=== PATIENT | male | born 1990 | race Caucasian/White ===

== ENCOUNTER 2019-04-26 00:14 | Emergency (ER) | payer SELFPAY ==
[~2019-04-26] VITALS: Ht 177.8 cm; Wt 74.8 kg
[2019-04-26] MEDS ORDERED: IV NORMAL SALINE 1,000ML 1,000 ML IV ONE (00:30)
--- NOTE | 2019-04-26 00:38 | PHYS DOC ---
Adult General Chief Complaint Chief Complaint: HALLUCINATIONS AUDIBLE/VISUAL HPI HPI 28-year-old male presents with auditory hallucinations. He tells me he has been hearing a clicking/station intermittently for the last 2 days. He is to here sounds like this more frequently prior to being put on psych medication. He presents tonight because he feels like it's becoming more frequent and is concerning. He denies visual hallucinations. He denies voices. He denies suicidal or homicidal ideation. He does not think his psych meds are working quite as well as they need to. Patient does admit to drinking some alcohol today. He also admits to nonspecific drug use a few days ago. He denies fever or chills. He tells me that this sound is present when he has done drugs and is present when he has not done drugs. He has not been feeling ill. He follows with the [facility] for his psychiatric medication. Review of Systems Review of Systems Constitutional: Denies fever or chills [] Eyes: Denies change in visual acuity, redness, or eye pain [] HENT: Denies nasal congestion or sore throat [] Respiratory: Denies cough or shortness of breath [] Cardiovascular: No additional information not addressed in HPI [] GI: Denies abdominal pain, nausea, vomiting, bloody stools or diarrhea [] : Denies dysuria or hematuria [] Musculoskeletal: Denies back pain or joint pain [] Integument: Denies rash or skin lesions [] Neurologic: Denies headache, focal weakness or sensory changes [] Endocrine: Denies polyuria or polydipsia Psych: Auditory hallucinations [] All other systems were reviewed and found to be within normal limits, except as documented in this note. Current Medications Current Medications Current Medications Medications (Trade) Dose Ordered Sig/Laura Start Time Stop Time Status Last Admin Dose Admin Sodium Chloride 1,000 ml @ 1,000 mls/hr 1X ONCE 04/26/19 00:30 04/26/19 01:29 UNV Allergies Allergies Allergies Coded Allergies Type Severity Reaction Last Updated Verified Penicillins Allergy Unknown 04/26/19 Yes Physical Exam Physical Exam Constitutional: Well developed, well nourished, no acute distress, non-toxic appearance. [] HENT: Normocephalic, atraumatic, bilateral external ears normal, oropharynx moist, no oral exudates, nose normal. [] Eyes: PERRLA, EOMI, conjunctiva normal, no discharge. [] Neck: Normal range of motion, no tenderness, supple, no stridor. [] Cardiovascular:Heart rate regular rhythm, no murmur [] Lungs & Thorax: Bilateral breath sounds clear to auscultation [] Abdomen: Bowel sounds normal, soft, no tenderness, no masses, no pulsatile masses. [] Skin: Warm, dry, no erythema, no rash. [] Back: No tenderness, no CVA tenderness. [] Extremities: No tenderness, no cyanosis, no clubbing, ROM intact, no edema. [] Neurologic: Alert and oriented X 3, normal motor function, normal sensory function, no focal deficits noted. [] Psychologic: Affect normal, judgement normal, mood normal. [] EKG EKG [] Radiology/Procedures Radiology/Procedures [] Course & Med Decision Making Course & Med Decision Making Pertinent Labs and Imaging studies reviewed. (See chart for details) The patient's labs are unremarkable except for slightly elevated white count. His urinalysis is negative for infection. His urine drug screen is positive for methamphetamine. This would explain his tachycardia on arrival. It is likely complicating his psychiatric medications. The patient does not appear to be a danger to himself or others. I have advised that he follow-up with the [facility] tomorrow to discuss his symptoms and possible medication changes. He is stable for discharge at this time. [] Dragon Disclaimer Dragon Disclaimer This electronic medical record was generated, in whole or in part, using a voice recognition dictation system. Departure Departure: Impression: Primary Impression: Hallucinations Disposition: 01 HOME, SELF-CARE Condition: STABLE Referrals: MIKI CORONA (PCP) Patient Instructions: Hallucinations and Delusions TOMEKA WHEAT DO Apr 26, 2019 00:37
[2019-04-26 01:01] LABS: BASO # 0.1 x10^3/uL (0.0-0.2); BASO % 0 % (0-3); EOS % 0 % (0-3); HEMATOCRIT 50.9 % (39.0-53.0); HEMOGLOBIN 17.2 g/dL (13.0-17.5); LYMPH # 2.5 x10^3/uL (1.0-4.8); LYMPH % 19 % (24-48); MEAN CORPUSCULAR HEMOGLOBIN 32 pg (25-35); MEAN CORPUSCULAR HGB CONC 34 g/dL (31-37); MEAN CORPUSCULAR VOLUME 95 fL (79-100); MONO # 1.2 x10^3/uL (0.0-1.1); MONO % 9 % (0-9); NEUT # 9.7 x10^3uL (1.8-7.7); NEUT % 72 % (31-73); PLATELET COUNT 377 x10^3/uL (140-400); RED BLOOD COUNT 5.37 x10^6/uL (4.30-5.70); RED CELL DISTRIBUTION WIDTH 12.5 % (11.5-14.5); WHITE BLOOD COUNT 13.6 x10^3/uL (4.0-11.0)
[2019-04-26 01:13] LABS: ALBUMIN 4.5 g/dL (3.4-5.0); CALCIUM 9.8 mg/dL (8.5-10.1); CREATININE 1.3 mg/dL (0.7-1.3); GFR 65.7; POTASSIUM 3.7 mmol/L (3.5-5.1); TOTAL BILIRUBIN 0.7 mg/dL (0.2-1.0); TOTAL PROTEIN 8.8 g/dL (6.4-8.2)
[2019-04-26 01:40] LABS: BARBITURATES NEG (NEG); BENZODIAZEPINES NEG (NEG); BILIRUBIN,URINE NEG (NEG); CANNABINOIDS NEG (NEG); CLARITY,URINE CLEAR; COCAINE NEG (NEG); COLOR,URINE YELLOW; GLUCOSE,URINE NEG (NEG); METHADONE NEG (NEG); OPIATES NEG (NEG); PHENCYCLIDINE NEG (NEG)
[2019-04-26 01:41] LABS: AMPHETAMINE/METHAMPHETAMINE POS (NEG); BACTERIA,URINE 0 /HPF (0-FEW); NITRITE,URINE NEG (NEG); RBC,URINE 0 /HPF (0-2); SQUAMOUS EPITHELIAL CELL,UR OCC /LPF; UROBILINOGEN,URINE 1 mg/dL (0.2 mg/dL); WBC,URINE OCC /HPF (0-4)
[2019-04-26 01:45] VITALS: BP 139/87
== END 2019-04-26 01:50 | disposition home or self-care (01) ==
LOC: ER 00:14
DX: R44.0 Auditory hallucinations (principal); Z88.0 Allergy status to penicillin
CPT/HCPCS: 36415; 80053; 80307; 81001; 85025; 99284-25; J7030

== ENCOUNTER 2020-05-26 16:43 | Emergency (ER) | payer OTHER ==
[~2020-05-26] VITALS: Ht 177.8 cm; Wt 80.3 kg
[2020-05-26 17:00] VITALS: BP 168/102
--- NOTE | 2020-05-26 17:15 | PHYS DOC ---
Past History Past Medical History: Schizophrenia (TOMEKA WHEAT DO) Past Surgical History: Other Additional Past Surgical Histo: "EARS" (TOMEKA WHEAT DO) Alcohol Use: Occasionally Drug Use: None (TOMEKA WHEAT DO) General Adult EDM: Chief Complaint: PSYCH EVALUATION HPI: HPI: 29-year-old male presents to the emergency department with suicidal thoughts and homicidal thoughts. He tells me that they are nonspecific. He has no specific plan. He just has been bothered by these thoughts more more lately and he is tired of it. Patient used to be on psychiatric medications but has not been on them for "some time".. He has states a history of schizophrenia. He feels like he is having a psychotic episode at this time. He does not mention any specific hallucinations or delusions. He wanted to get into the [facility] but was unable to do that today so he came here. (TOMEKA WHEAT DO) Review of Systems: Review of Systems: Constitutional: Denies fever or chills Eyes: Denies change in visual acuity HENT: Denies nasal congestion or sore throat Respiratory: Denies cough or shortness of breath Cardiovascular: Denies chest pain or edema GI: Denies abdominal pain, nausea, vomiting, bloody stools or diarrhea : Denies dysuria Musculoskeletal: Denies back pain or joint pain Integument: Denies rash Neurologic: Denies headache, focal weakness or sensory changes Endocrine: Denies polyuria or polydipsia Lymphatic: Denies swollen glands Psychiatric: Suicidal and homicidal thoughts. (TOMEKA WHEAT DO) Allergies: Allergies: Allergies Coded Allergies Type Severity Reaction Last Updated Verified Penicillins Allergy Unknown 04/26/19 Yes (TOMEKA WHEAT DO) Physical Exam: PE: Constitutional: Well developed, well nourished, no acute distress, non-toxic appearance. [] HENT: Normocephalic, atraumatic, bilateral external ears normal, oropharynx moist, no oral exudates, nose normal. [] Eyes: PERRLA, EOMI, conjunctiva normal, no discharge. [] Neck: Normal range of motion, no tenderness, supple, no stridor. [] Cardiovascular: Heart rate regular rhythm, no murmur [] Lungs & Thorax: Bilateral breath sounds clear to auscultation [] Abdomen: Bowel sounds normal, soft, no tenderness, no masses, no pulsatile mas ses. [] Skin: Warm, dry, no erythema, no rash. [] Back: No tenderness, no CVA tenderness. [] Extremities: No tenderness, no cyanosis, no clubbing, ROM intact, no edema. [] Neurologic: Alert and oriented X 3, normal motor function, normal sensory function, no focal deficits noted. [] Psychologic: Affect normal, judgement normal, mood anxious. [] (TOMEKA WHEAT DO) EKG: EKG: [] (TOMEKA WHEAT DO) Radiology/Procedures: Radiology/Procedures: [] (TOMEKA WHEAT DO) Heart Score: Risk Factors: Risk Factors: DM, Current or recent (<one month) smoker, HTN, HLP, family history of CAD, obesity. Risk Scores: Score 0 - 3: 2.5% MACE over next 6 weeks - Discharge Home Score 4 - 6: 20.3% MACE over next 6 weeks - Admit for Clinical Observation Score 7 - 10: 72.7% MACE over next 6 weeks - Early Invasive Strategies (TOMEKA WHEAT DO) Course & Med Decision Making: Course & Med Decision Making Pertinent Labs and Imaging studies reviewed. (See chart for details) The patient's work-up and psychiatric evaluation are both pending at this time. I am signing the patient out to Dr. Spivey at 1800. [] (TOMEKA WHEAT DO) Course & Med Decision Making See Dr. Wheat notes for details. Still awaiting Tele Psych at 2000 hrs. See Tele. Psych report. 2030 hrs. Impression: 1. Depression 2. Suicidal Ideation 3. Schizophrenia (LYNNE SPIVEY MD) Dragon Disclaimer: Dragon Disclaimer: This electronic medical record was generated, in whole or in part, using a voice recognition dictation system. (TOMEKA WHEAT DO) Departure Departure: Impression: Primary Impression: Suicidal thoughts Additional Impression: Schizophrenia Referrals: PCP,NO (PCP) Jcon Disclaimer This chart was dictated in whole or in part using Voice Recognition software in a busy, high-work load, and often noisy Emergency Department environment. It may contain unintended and wholly unrecognized errors or omissions. (LYNNE SPIVEY MD) TOMEKA WHEAT DO May 26, 2020 17:15 LYNNE SPIVEY MD May 26, 2020 17:55
[2020-05-26 17:27] LABS: BARBITURATES NEG (NEG); BENZODIAZEPINES NEG (NEG); CANNABINOIDS NEG (NEG); COCAINE NEG (NEG); METHADONE NEG (NEG); OPIATES NEG (NEG); PHENCYCLIDINE NEG (NEG)
[2020-05-26 17:29] LABS: AMPHETAMINE/METHAMPHETAMINE NEG (NEG)
[2020-05-26 17:35] LABS: BILIRUBIN,URINE NEG (NEG); CLARITY,URINE CLEAR; COLOR,URINE STRAW; GLUCOSE,URINE NEG (NEG); NITRITE,URINE NEG (NEG); UROBILINOGEN,URINE 0.2 mg/dL (0.2 mg/dL)
[2020-05-26 17:36] LABS: BACTERIA,URINE 0 /HPF (0-FEW); RBC,URINE 0 /HPF (0-2); WBC,URINE 0 /HPF (0-4)
[2020-05-26 18:22] LABS: BASO % 0 % (0-3); EOS % 1 % (0-3); HEMATOCRIT 46.5 % (39.0-53.0); HEMOGLOBIN 15.8 g/dL (13.0-17.5); LYMPH # 1.1 x10^3/uL (1.0-4.8); LYMPH % 14 % (24-48); MEAN CORPUSCULAR HEMOGLOBIN 32 pg (25-35); MEAN CORPUSCULAR HGB CONC 34 g/dL (31-37); MEAN CORPUSCULAR VOLUME 94 fL (79-100); MONO # 0.7 x10^3/uL (0.0-1.1); MONO % 9 % (0-9); NEUT # 5.9 x10^3uL (1.8-7.7); NEUT % 76 % (31-73); PLATELET COUNT 239 x10^3/uL (140-400); RED BLOOD COUNT 4.94 x10^6/uL (4.30-5.70); RED CELL DISTRIBUTION WIDTH 13.4 % (11.5-14.5); WHITE BLOOD COUNT 7.7 x10^3/uL (4.0-11.0)
[2020-05-26 18:38] LABS: CALCIUM 9.9 mg/dL (8.5-10.1); CREATININE 0.9 mg/dL (0.7-1.3); GFR 99.8
[2020-05-26 18:44] LABS: ALBUMIN 4.3 g/dL (3.4-5.0); TOTAL BILIRUBIN 0.4 mg/dL (0.2-1.0); TOTAL PROTEIN 8.5 g/dL (6.4-8.2)
== END 2020-05-26 20:40 | disposition home or self-care (01) ==
LOC: ER 16:43 → EEVIPCON 16:43 → ER 20:40
DX: R45.851 Suicidal ideations (principal); F20.9 Schizophrenia, unspecified; F32.9 Major depressive disorder, single episode, unspecified; Z88.0 Allergy status to penicillin; Z98.890 Other specified postprocedural states
CPT/HCPCS: 36415; 80053; 80307; 81001; 85025; 99285; G0480

== ENCOUNTER 2021-08-31 11:03 | Emergency (ER) | payer OTHER ==
[~2021-08-31] VITALS: Ht 152.4 cm; Wt 89.7 kg
[2021-08-31 11:24] VITALS: BP 157/100
[2021-08-31] MEDS ORDERED: IV NORMAL SALINE 1,000ML 1,000 ML IV ONE (11:30)
[2021-08-31 11:54] LABS: BASO % 1 % (0-3); EOS # 0.1 x10^3/uL (0.0-0.7); EOS % 1 % (0-3); HEMATOCRIT 46.1 % (39.0-53.0); LYMPH # 2.4 x10^3/uL (1.0-4.8); LYMPH % 33 % (24-48); MEAN CORPUSCULAR HEMOGLOBIN 35 pg (25-35); MEAN CORPUSCULAR HGB CONC 35 g/dL (31-37); MEAN CORPUSCULAR VOLUME 99 fL (79-100); MONO # 0.8 x10^3/uL (0.0-1.1); MONO % 12 % (0-9); NEUT # 3.8 x10^3uL (1.8-7.7); NEUT % 53 % (31-73); PLATELET COUNT 286 x10^3/uL (140-400); RED BLOOD COUNT 4.63 x10^6/uL (4.30-5.70); RED CELL DISTRIBUTION WIDTH 12.6 % (11.5-14.5); WHITE BLOOD COUNT 7.2 x10^3/uL (4.0-11.0)
[2021-08-31 12:02] LABS: CALCIUM 8.7 mg/dL (8.5-10.1); CREATININE 0.9 mg/dL (0.7-1.3); GFR 98.4; POTASSIUM 3.7 mmol/L (3.5-5.1)
[2021-08-31] MEDS: LIDOCAINE 2%/EPI 1:100,000 20 ML VIAL. IJ PRN ×2 (12:02→13:18)
[2021-08-31] MEDS ORDERED: CEPH500T PO (12:34)
--- NOTE | 2021-08-31 12:37 | PHYS DOC ---
Past History Past Medical History: Schizophrenia (AUTUMN FRASER APRN) Past Surgical History: No Surgical History Additional Past Surgical Histo: "EARS" (AUTUMN FRASER APRN) Alcohol Use: Occasionally Drug Use: None (AUTUMN FRASER APRN) General Adult EDM: Chief Complaint: ABSCESS HPI: HPI: Patient is a 31-year-old male presents with abscess to right AC. Patient is a methamphetamine IV, drug user. Patient states he noticed the abscess a few days ago. Patient states last time he used methamphetamines was 5 days ago. Patient has sinus tachycardia, heart rate 137 on arrival. Denies chest pain, shortness of breath, pain to area. Denies fevers. Denies all medical history. (AUTUMN FRASER APRN) Review of Systems: Review of Systems: ROS At least 10 ROS systems have been reviewed and are negative except as documented in the HPI. General: Negative except as outlined in HPI above. Skin: Negative except as outlined in HPI above. HEENT: Negative except as outlined in HPI above. Neck: Negative except as outlined in HPI above. Respiratory: Negative except as outlined in HPI above.. Cardiovascular: Negative except as outlined in HPI above. Abdomen: Negative except as outlined in HPI above. : Negative except as outlined in HPI above. Back/MSK: Negative except as outlined in HPI above. Neuro: Negative except as outlined in HPI above. Psych: Negative except as outlined in HPI above. (AUTUMN FRASER APRN) Current Medications: Current Meds: Current Medications Medications (Trade) Dose Ordered Sig/Laura Start Time Stop Time Status Last Admin Dose Admin Lidocaine/ Epinephrine (Xylocaine 2%-Epi 1:100,000) 20 ml 1X PRN 08/31/21 11:30 08/31/21 12:02 20 ML Sodium Chloride 1,000 ml @ 1,000 mls/hr 1X ONCE 08/31/21 11:30 08/31/21 12:29 08/31/21 11:30 1,000 MLS/HR (AUTUMN FRASER APRN) Allergies: Allergies: Allergies Coded Allergies Type Severity Reaction Last Updated Verified Penicillins Allergy Unknown 04/26/19 Yes (AUTUMN FRASER APRN) Physical Exam: PE: Constitutional: Well developed, well nourished, no acute distress, non-toxic appearance. [] HENT: Normocephalic, atraumatic, bilateral external ears normal, oropharynx moist, no oral exudates, nose normal. [] Eyes: PERRLA, EOMI, conjunctiva normal, no discharge. [] Neck: Normal range of motion, no tenderness, supple, no stridor. [] Cardiovascular:Heart rate regular rhythm, no murmur [] Lungs & Thorax: Bilateral breath sounds clear to auscultation [] Abdomen: Bowel sounds normal, soft, no tenderness, no masses, no pulsatile masses. [] Skin: Fluctuant, abscess, right AC, no tenderness Back: No tenderness, no CVA tenderness. [] Extremities: No tenderness, no cyanosis, no clubbing, ROM intact, no edema. [] Neurologic: Alert and oriented X 3, normal motor function, normal sensory function, no focal deficits noted. [] Psychologic: Affect normal, judgement normal, mood normal. [] (AUTUMN FRASER APRN) Current Patient Data: Labs: Laboratory Tests Test 08/31/21 11:35 White Blood Count 7.2 x10^3/uL (4.0-11.0) Red Blood Count 4.63 x10^6/uL (4.30-5.70) Hemoglobin 16.0 g/dL (13.0-17.5) Hematocrit 46.1 % (39.0-53.0) Mean Corpuscular Volume 99 fL (79-100) Mean Corpuscular Hemoglobin 35 pg (25-35) Mean Corpuscular Hemoglobin Concent 35 g/dL (31-37) Red Cell Distribution Width 12.6 % (11.5-14.5) Platelet Count 286 x10^3/uL (140-400) Neutrophils (%) (Auto) 53 % (31-73) Lymphocytes (%) (Auto) 33 % (24-48) Monocytes (%) (Auto) 12 % (0-9) H Eosinophils (%) (Auto) 1 % (0-3) Basophils (%) (Auto) 1 % (0-3) Neutrophils # (Auto) 3.8 x10^3uL (1.8-7.7) Lymphocytes # (Auto) 2.4 x10^3/uL (1.0-4.8) Monocytes # (Auto) 0.8 x10^3/uL (0.0-1.1) Eosinophils # (Auto) 0.1 x10^3/uL (0.0-0.7) Basophils # (Auto) 0.0 x10^3/uL (0.0-0.2) Sodium Level 133 mmol/L (136-145) L Potassium Level 3.7 mmol/L (3.5-5.1) Chloride Level 103 mmol/L (98-107) Carbon Dioxide Level 23 mmol/L (21-32) Anion Gap 7 (6-14) Blood Urea Nitrogen 6 mg/dL (8-26) L Creatinine 0.9 mg/dL (0.7-1.3) Estimated GFR (Cockcroft-Gault) 98.4 Glucose Level 118 mg/dL (70-99) H Calcium Level 8.7 mg/dL (8.5-10.1) Vital Signs: Vital Signs Date Time Temp Pulse Resp B/P (MAP) Pulse Ox O2 Delivery O2 Flow Rate FiO2 08/31/21 11:24 97.6 140 16 157/100 (119) 97 (AUTUMN FRASER APRN) EKG: EKG: [] (AUTUMN FRASER APRN) Radiology/Procedures: Radiology/Procedures: [] (AUTUMN FRASER APRN) Heart Score: C/O Chest Pain: No Risk Factors: Risk Factors: DM, Current or recent (<one month) smoker, HTN, HLP, family history of CAD, obesity. Risk Scores: Score 0 - 3: 2.5% MACE over next 6 weeks - Discharge Home Score 4 - 6: 20.3% MACE over next 6 weeks - Admit for Clinical Observation Score 7 - 10: 72.7% MACE over next 6 weeks - Early Invasive Strategies (AUTUMN FRASER APRN) Course & Med Decision Making: Course & Med Decision Making Pertinent Labs and Imaging studies reviewed. (See chart for details) [] Nontoxic appearing, 31-year-old male presents with abscess to his right AC. Patient admits to using methamphetamine by needle 5 days ago. Patient's heart rate was elevated on arrival, 137 sinus rhythm. Patient given NS bolus. Afebrile. I&D completed. Refused lidocaine to numb the area prior to incision. Moderate amount of drainage was expressed from area. Patient handle procedure well. Incision was packed. Gauze was placed over incision area along with Coban. Bleeding was controlled. Discussed return instructions. Patient is going to follow-up with his PCP on Friday for a wound check. Patient is at home with antibiotic. Patient verbalizes understanding of discharge instructions. (AUTUMN FRASER APRN) Carrol Disclaimer: Carrol Disclaimer: This electronic medical record was generated, in whole or in part, using a voice recognition dictation system. 31-year-old male presents with abscess to right AC. Patient is a current IV drug user. Patient states he used methamphetamine 5 days ago. Patient is denying pain. Incision placed an abscess and drained. Moderate amount of drainage came from abscess. Abscess was then packed and covered with gauze. Patient is afebrile. Heart rate was elevated at 137. Patient given NS bolus. Patient's heart rate decreased after normal saline bolus administered. Heart rate 110. Discussed pain control at home with ibuprofen and Tylenol. Patient is going to follow-up with his PCP on Friday for a wound check. Discussed return precautions in length. Patient states he understands discharge instructions. (AUTUMN FRASER APRN) Incision and Drainage Indication: Abscess to right AC Procedure: The patient was positioned appropriately and the skin over the incisi on site was cleaned with iodine. Patient refused local anesthesia. An incision was then made over the right AC and amount of drainage material was expressed. Loculations were broken up.. The drainage cavity was then packed with hemostats. The patients tetanus status updated. The patient tolerated the procedure well Complications: N/A (AUTUMN FRASER APRN) Attending Co-Sign The patient was seen and interviewed as well as examined at the bedside. The chart was reviewed. The case was discussed. Agree with the plan of care. (TOMEKA WHEAT DO) Departure Departure: Impression: Primary Impression: Abscess Disposition: HOME / SELF CARE / HOMELESS Condition: STABLE Referrals: PCP,NO (PCP) Patient Instructions: Abscess, Care After, Abscess, [id number] Additional Instructions: You were seen in the emergency room for an abscess. We drained the abscess. If you have discomfort you can use ibuprofen or Tylenol at home. I am sending you home with a prescription for an antibiotic. Please make sure you take it in full and as directed. Please follow-up with your PCP on Friday for a wound check. Please return to emergency with worsening symptoms or concerns. EMERGENCY DEPARTMENT GENERAL DISCHARGE INSTRUCTIONS Thank you for coming to [facility] (ED) today and trusting us with you care. We trust that you had a positivie experience in our Emergency Department. If you wish to speak to the department management, you may call the director at [phone]. YOUR FOLLOW UP INSTRUCTIONS ARE FOLLOWS: 1. Do you have a private Doctor? If you do not have a private doctor, please ask for a resource list of physicians or clinics that may be able to assist you with follow up care. 2. The Emergency Physician has interpreted your x-rays. The X-Ray specialist will also review them. If there is a change in the findings, you will be notified in 48 hours when at all possible. 3. A lab test or culture has been done, your results will be reviewed and you will be notified if you need a change in treatment. ADDITIONAL INSTRUCTIONS AND INFORMATION: 1. Your care today has been supervised by a physician who is specially trained in emergency care. Many problems require more than one evaluation for a complete diagnosis and treatment. We recommend that you schedule your follow up appointment as recommended to ensure complete treatment of you illness or injury. If you are unable to obtain follow up care and continue to have a problem, or if your condition worsens, we recommend that you return to the ED. 2. We are not able to safely determine your condition over the phone nor are we able to give sound medical advice over the phone. For these safety reasons, if you call for medical advice we will ask you to come to the ED for further evaluation. 3. If you have any questions regarding these discharge instructions please call the ED at [phone]. SAFETY INFORMATION: In the interest of safety, wellness, and injury prevention; we encourage you to wear your sealbelt, if you smoke; quite smoking, and we encourage family to use a protective helmet for bicycling and other sporting events that present an increased risk for head injury. IF YOUR SYMPTOMS WORSEN OR NEW SYMPTOMS DEVELOP, OR YOU HAVE CONCERNS ABOUT YOUR CONDITION; OR IF YOUR CONDITION WORSENS WHILE YOU ARE WAITING FOR YOUR FOLLOW UP APPOINTMENT; EITHER CONTACT YOUR PRIMARY CARE DOCTOR, THE PHYSICIAN WHOSE NAME AND NUMBER YOU WERE GIVEN, OR RETURN TO THE ED IMMEDIATELY. Scripts Cephalexin (CEPHALEXIN) 500 Mg Tablet 1 TAB PO BID for infection for 7 Days, #14 TAB Prov: AUTUMN FRASER APRN 08/31/21 AUTUMN FRASER APRN Aug 31, 2021 12:37 TOMEKA WHEAT DO Sep 03, 2021 06:17
[2021-08-31] MEDS ORDERED: DIPHTH,PERTUSS(ACELL),TET TOX 0.5 ML DISP.SYRIN. VAX IM ONE (12:45)
== END 2021-08-31 13:21 | disposition home or self-care (01) ==
LOC: ER 11:03
DX: L02.413 Cutaneous abscess of right upper limb (principal); F20.9 Schizophrenia, unspecified; F15.90 Other stimulant use, unspecified, uncomplicated; Z88.0 Allergy status to penicillin
CPT/HCPCS: 10060; 36415; 80048; 85025; 90471; 90715; 96360; 99283; J7030

== ENCOUNTER 2021-09-03 12:28 | Emergency (ER) | payer OTHER ==
[~2021-09-03] VITALS: Ht 152.4 cm; Wt 89.7 kg
[~2021-09-03 12:28] MED LIST: CEPH500T PO
--- NOTE | 2021-09-03 12:54 | PHYS DOC ---
Past History Past Medical History: Schizophrenia Past Surgical History: No Surgical History Additional Past Surgical Histo: "EARS" Alcohol Use: Occasionally Drug Use: None General Adult EDM: Chief Complaint: ABSCESS HPI: HPI: 31-year-old male returns the emergency room for wound check. Patient had an abscess in his right AC drained by my colleague few days ago. He presents today for packing removal and to check on it. The swelling is significantly decreased. He denies any fever or chills. He tells me that it looks much better to him. Review of Systems: Review of Systems: Constitutional: Denies fever or chills Eyes: Denies change in visual acuity HENT: Denies nasal congestion or sore throat Respiratory: Denies cough or shortness of breath Cardiovascular: Denies chest pain or edema GI: Denies abdominal pain, nausea, vomiting, bloody stools or diarrhea : Denies dysuria Musculoskeletal: Denies back pain or joint pain Integument: Wound from abscess Neurologic: Denies headache, focal weakness or sensory changes Endocrine: Denies polyuria or polydipsia Lymphatic: Denies swollen glands Psychiatric: Denies depression or anxiety Allergies: Allergies: Allergies Coded Allergies Type Severity Reaction Last Updated Verified Penicillins Allergy Unknown 04/26/19 Yes Physical Exam: PE: Constitutional: Well developed, well nourished, no acute distress, non-toxic appearance. [] HENT: Normocephalic, atraumatic, bilateral external ears normal, oropharynx moist, no oral exudates, nose normal. [] Eyes: PERRLA, EOMI, conjunctiva normal, no discharge. [] Neck: Normal range of motion, no tenderness, supple, no stridor. [] Cardiovascular:Heart rate regular rhythm, no murmur [] Lungs & Thorax: Bilateral breath sounds clear to auscultation [] Abdomen: Bowel sounds normal, soft, no tenderness, no masses, no pulsatile masses. [] Skin: 1 cm open wound of the right antecubital fossa, no purulent drainage, some bruising, no obvious cellulitis. [] Back: No tenderness, no CVA tenderness. [] Extremities: No tenderness, no cyanosis, no clubbing, ROM intact, no edema. [] Neurologic: Alert and oriented X 3, normal motor function, normal sensory function, no focal deficits noted. [] Psychologic: Affect normal, judgement normal, mood normal. [] EKG: EKG: [] Radiology/Procedures: Radiology/Procedures: [] Heart Score: C/O Chest Pain: N/A Risk Factors: Risk Factors: DM, Current or recent (<one month) smoker, HTN, HLP, family history of CAD, obesity. Risk Scores: Score 0 - 3: 2.5% MACE over next 6 weeks - Discharge Home Score 4 - 6: 20.3% MACE over next 6 weeks - Admit for Clinical Observation Score 7 - 10: 72.7% MACE over next 6 weeks - Early Invasive Strategies Course & Med Decision Making: Course & Med Decision Making Pertinent Labs and Imaging studies reviewed. (See chart for details) The patient's abscess and infection does seem to be improving with current treatment. I have stressed to him to not do drugs ever again. I have also told him that he is keep the area clean and dry and covered. It will take a week or more for the hole to close up. Patient states verbal understanding. He is stable for discharge at this time. [] Jcon Disclaimer: Carrol Disclaimer: This electronic medical record was generated, in whole or in part, using a voice recognition dictation system. Departure Departure: Impression: Primary Impression: Wound check, abscess Disposition: HOME / SELF CARE / HOMELESS Condition: STABLE Referrals: PCP,NO (PCP) Patient Instructions: Abscess, Care After Additional Instructions: Please keep your wound clean and dry. It would be best to keep it covered especially when you are not at home. The hole will slowly close over time. TOMEKA WHEAT DO Sep 03, 2021 12:54
[2021-09-03 13:06] VITALS: BP 157/100
== END 2021-09-03 13:00 | disposition home or self-care (01) ==
LOC: ER 12:31
DX: Z48.01 Encounter for change or removal of surgical wound dressing (principal); L02.413 Cutaneous abscess of right upper limb; F20.9 Schizophrenia, unspecified; Z88.0 Allergy status to penicillin
CPT/HCPCS: 99281